=== PATIENT | female | born 1985 ===

== ENCOUNTER 2018-08-17 05:21 | Inpatient (IN) | payer OTHER ==
[2018-08-17 05:48] VITALS: BMI 28.0
[2018-08-17] MEDS ORDERED: Oxytocin 30 UNIT in NS 500 ml 30 UNITS/500 ML BAG IV ONE (05:48)
[2018-08-17] MEDS: Lactated Ringer's 1,000 ML IV ONE ×2 (06:00→07:00)
[2018-08-17] MEDS ORDERED: OXYTOCIN/0.9 % NS 20 UNIT/1,000 ML BAG IV SCH ×2 (06:00→14:30)
[2018-08-17 06:26] LABS: BASO % 0.5 % (0.0-2.0); EOS # 0.1 K/uL (0.0-0.7); EOS % 2.2 % (0.0-4.0); LYMPH # 1.6 K/uL (1.0-4.3); MEAN CELL VOLUME 81.1 fl (81.0-99.0); MEAN CORPUSCULAR HEMOGLOBIN 25.6 pg (27.0-31.0); MEAN CORPUSCULAR HGB CONC 31.5 g/dL (33.0-37.0); MEAN PLATELET VOLUME 9.2 fl (7.2-11.7); MONO # 0.4 K/uL (0.0-0.8); MONO % 5.3 % (0.0-10.0); NEUT # 4.4 K/uL (1.8-7.0); NRBC % 0.4 % (0.0-0.0); RBC 4.69 Mil/uL (3.80-5.20); RED CELL DISTRIBUTION WIDTH 35.9 % (11.5-14.5); WHITE BLOOD COUNT 6.6 K/uL (4.8-10.8)
[2018-08-17] MEDS ORDERED: ceFAZolin 2 GM in Sodium Chloride 0.9% 100 ML IVPB ONE (07:04)
--- NOTE | 2018-08-17 08:44 | OBADHP ---
Datetime: 08/17/2018 08:09 Admit Comment, IP Provider: 32 y/o , 39.3 weeks based on LMP with NARINDER 08/21/18 presents to L_D fo r scheduled repeat C - Section. Patient has H/O RAO in prior as well as current f or which she is receiving weekly IV iron infusions. Last infusion on 08/14/18. Reports Irregular CTx Q10-15 mins. Denies vaginal bleeding, LOF, Endorses good movements. Denies any other complains at this time. care: [facility], H/O RAO in prior and current pregnnacy receiving weekly IV Iron Infus ion. GBS+, Rubella Immune, HBsAg neg, HIV NR, RPR neg, Blood type O+ ab Neg. OBHx: G1: C section d/t dailed induction and decels, 39 weeks, RAO, received 3 PRBC S/P C section G2: Scheduled C section, RAO, receiving IV iron PMHx: RAO PSHx: C section 2011 Allergies: NKDA Meds: IV iron weekly, PNVs F/H: Grand parents: DM SocialHx: Denies smoking/drugs/alcohol PE Gen: NAD Chest: RRR, S1S2 present, No murmurs Lungs: CTAB, No rales, wheezing Abdomen: Gravid, NT, BS+ Ext: No pedal edema A/P: 32 y/o , 39.3 weeks based on LMP with NARINDER 08/21/18 presents to L_D for scheduled repeat C - Section. GBS+, Rubella Immune, HBsAg neg, HIV NR, RPR neg, Blood type O+ ab Neg. - admit for scheduled C section - LR 2L - CBC, T_S, HIV, RPR - Ancef 2 gm - Anesthesia consult - TOco and EFM monitoring Case discussed with Dr. Argelia Watt, PGY1 OB Hospitalist Addendum: Pt seen and examined by me. Agree w/ above. 32 yo at 39+3 wks w / h/o section for repeat section. Consents for procedure and possible transfusion obtained. (ES) Pelvic Type - PN: Not Done Extremities - PN: Normal Abdomen - PN: Normal Back - PN: Normal Breast - PN: Not Done Lungs - PN: Normal Heart - PN: Normal Thyroid - PN: Not Done Neurologic - PN: Normal HEENT - PN: Normal General - PN: Normal FHR - Baseline A Provider: 140-150s IP Hx Assessment: The History has been Reviewed and is Current Vital Signs Provider: Reviewed; Within Normal Limits IP Chief Complaint: Scheduled Section NICHD Variability Prov Fetus A: Moderate 6-25bpm NICHD Accel Fetus A IP Provider: [id number] FHR Category Provider Fetus A: Category I NICHD Decel Fetus A IP Provider: Variable Genitourinary Exam: Not Done DTRs - PN: Normal EGA AdmitDate IP: 39.3 IP Adm Impression: Term, intrauterine IP Admit Plan: Initiate Section protocol
[2018-08-17] MEDS ORDERED: Lactated Ringer's 1,000 ML IV SCH (09:00)
[2018-08-17] MEDS ORDERED: Morphine 5 mg/10 ml preservative-free Inj(Duramorph) ONE (09:18)
[2018-08-17] MEDS ORDERED: Oxycodone/Acetaminophen 5/325 mg Tab PO PRN (10:33)
[2018-08-17] MEDS ORDERED: DiphenhydrAMINE 50 mg/ml Inj IVP PRN (10:49)
--- NOTE | 2018-08-17 10:49 | OBDS ---
DELIVERY PERSONNEL Delivery Doctor: Juany Wu MD Sap Functional Analyst: Aishwarya Mcneill RN Anesthesiologist: Jeramy Adler MD Resident: Shukri MATERNAL INFORMATION Delivery Anesthesia: Spinal Provider Comments: Pre-op dx: 32 yo at 39+3 wks w/ h/o previous section for repeat section Post-op dx: same Procedure: Repeat low transverse section, scar excision Surgeon: Bryce Radio Message Router: Drs. Kaity Gorman, OB fellow and Cabrera Watt, PGY-1 Anesthesia: Spinal Anesthesiologist: Dr. Adler Findings: Viable female delivered in cephalic presentation through clear fluid at 0952. Ap gars 9 and 9. Wt 3420 gms, 7#9. Nl appearing uterus, tubes and ovaries. EBL: 800 mL Complications: None LABOR SUMMARY EDC: 08/21/2018 00:00 No. Babies in Womb: 1 Attempted: No Labor Anesthesia: None LABOR INFORMATION Reason for Induction: Not Applicable Oxytocin: N/A Group B Beta Strep: Positive Steroids Given: None Reason Steroids Not Administered: Not Applicable MEMBRANES Membranes Rupture Method: Artificial Rupture of Membranes: 08/17/2018 09:51 Length of Rupture (hrs): 0.02 Amniotic Fluid Color: Clear Amniotic Fluid Amount: Moderate Amniotic Fluid Odor: Normal STAGES OF LABOR Stage 3 hrs: 0 Stage 3 min: 1 CSECTION DELIVERY Primary Indication: Repeat Elective CSection Urgency: Elective CSection Incidence: Repeat Labor: No Labor Elective: Elective CSection Incision: Lower Uterine Transverse BABY A INFORMATION Delivery Date/Time: 08/17/2018 09:52 Method of Delivery: Born in Route : No : N/A Forceps: N/A Vacuum Extraction: N/A Shoulder Dystocia : No SHOULDER DYSTOCIA BABY A Infant Delivery Date/Time: 08/17/2018 09:52 PRESENTATION/POSITION BABY A Presentation: Cephalic Cephalic Presentation: Vertex Breech Presentation: N/A PLACENTA INFORMATION BABY A Placenta Delivery Time : 08/17/2018 09:53 Placenta Method of Delivery: Manual Removal Placenta Status: Delivered SCORES BABY A Heart Rate 1 min: >100 bpm Resp Effort 1 min: Good Cry Reflex Irritability 1 min: Cough or Sneeze or Pulls Away Muscle Tone 1 min: Active Motion Color 1 min: Body Kress, Extremities Blue Resuscitation Effort 1 min: N/A SCORE 1 MIN: 9 Heart Rate 5 min: >100 bpm Resp Effort 5 min: Good Cry Reflex Irritability 5 min: Cough or Sneeze or Pulls Away Muscle Tone 5 min: Active Motion Color 5 min: Body Kress, Extremities Blue Resuscitation Effort 5 min: N/A SCORE 5 MIN: 9 INFORMATION BABY A Gestational Age at Delivery: 39.3 Gestational Status: Term Outcome : Liveborn Infant Condition : Stable Infant Sex: Female IDENTIFICATION/MEDS BABY A ID Band Number: [id number] ID Band Location: Left Leg; Left Arm WEIGHT/LENGTH BABY A Infant Birthweight (gms): 3420 Weight (lb): 7 Weight (oz): 9 Infant Length Inches: 21.00 Length cms: 53.3 CORD INFORMATION BABY A No. Cord Vessels: 3 Nuchal Cord : N/A Cord Blood Taken: N/A Suction: Mouth; Nose
[2018-08-17] MEDS: Simethicone 80 mg Chewtab PO SCH ×2 (17:26→23:08)
[2018-08-17] MEDS: Lactated Ringer's 1,000 ML IV SCH (22:29)
--- NOTE | 2018-08-17 22:32 | OP ---
PROCEDURE DATE: 08/17/2018 PREOPERATIVE DIAGNOSIS: This is a 32-year-old G2, P1-0-0-1 at 39 weeks' and 3 days with a history of previous section for repeat section. POSTOPERATIVE DIAGNOSIS: This is a 32-year-old G2, P1-0-0-1 at 39 weeks' and 3 days with a history of previous section for repeat section. PROCEDURE: Repeat low transverse section and scar excision. SURGEON: Idalia Wu MD ASSISTANTS: Dr. Kaity Gorman, OB fellow and Dr. Cabrera Watt, PGY-1. ANESTHESIA: Spinal anesthesia. ANESTHESIOLOGIST: Dr. Adler. FINDINGS: Viable female delivered in cephalic presentation to clear fluid at 0952. Apgars 9 and 9 at 1 and 5 minutes respectively. The weight was 3420 g or 7 pounds and 9 ounces. Normal appearing uterus, tubes, and ovaries. ESTIMATED BLOOD LOSS: About 800 mL. COMPLICATIONS: None. DESCRIPTION OF PROCEDURE: The patient was taken to the operating room with IV running. Spinal was placed. She was then prepped and draped in the normal sterile fashion in the dorsal supine position with a leftward tilt. A Lo was then placed in the bladder. Time-out was done. The spinal was tested and found to be adequate. Initially the previous keloid scar was cut out with the scalpel. It was then held up with an Allis clamp, and Packer scissors were used to excise the scar tissue. The incision was then carried through to the underlying layer of fascia with the scalpel. The fascia was then incised in the midline. The incision was extended laterally with Packer scissors. The inferior aspect of the fascial incision was then grasped with David clamps, elevated and the underlying rectus muscles were dissected off bluntly. Attention was then turned to the superior aspect of this incision which in a similar fashion was grasped, tented up with David clamps, and rectus muscle was dissected off bluntly. The rectus muscles were then in the midline. The peritoneum was entered digitally. The peritoneal incision was then extended superiorly and inferiorly with good visualization of the bladder. The bladder blade was then inserted. The vesicouterine peritoneum was identified, grasped with the pickups and entered sharply with Metzenbaum scissors. The incision was then extended laterally and the bladder flap was created digitally. The bladder blade was then reinserted and the lower uterine segment was incised in a transverse fashion with the scalpel. The uterine incision was then extended digitally. Allis clamp was used to break the membranes. The bladder blade was removed and the infant's head delivered atraumatically. The cord was clamped and cut. There was initially some delayed cord clamping and then the cord was clamped and cut. The infant was handed off to the awaiting security operations center operator. Cord blood was then collected. The placenta was then delivered and the uterus was massaged. The uterus was then exteriorized and cleared of all clots and debris with a dry sponge curettage. Uterine incision was repaired with 0 Vicryl in a running locked fashion. [id number] was then placed in the middle of the incision for hemostasis and an interrupted suture was placed at the left hand side of the incision for hemostasis. The abdomen was then well irrigated. The uterus was returned to the abdomen. The incision was reexamined and a single interrupted stitch of 0 Vicryl was placed again at the left hand corner of the incision for hemostasis. The gutters were cleared of all clots. The peritoneum was then closed with 2-0 chromic. The muscle was then reapproximated with running stitch of 0 chromic. The fascia was reapproximated with 0 Vicryl in a running fashion. Bovie was applied to small bleeders and subcutaneous fat. About two interrupted stitches of 2-0 plain gut were used to close the space of the fat. The skin was then closed with 4-0 Monocryl in a subcuticular fashion. The patient tolerated the procedure well. Sponge, lap, and needle counts were correct. The patient received 2 g of Ancef prior to and at the very beginning of the procedure. The patient was taken to the recovery room in stable condition. Idalia Wu MD
[2018-08-18] MEDS: Simethicone 80 mg Chewtab PO SCH ×4 (04:44→21:43)
[2018-08-18] MEDS: Lactated Ringer's 1,000 ML IV SCH (06:03)
[2018-08-18 06:05] LABS: HEMOGLOBIN 9.3 g/dL (12.0-16.0); MEAN CORPUSCULAR HEMOGLOBIN 26.4 pg (27.0-31.0); RBC 3.53 Mil/uL (3.80-5.20); RED CELL DISTRIBUTION WIDTH 36.7 % (11.5-14.5); WHITE BLOOD COUNT 7.9 K/uL (4.8-10.8)
[2018-08-18] MEDS ORDERED: Multivitamin With Minerals Tab PO SCH (09:00)
--- NOTE | 2018-08-18 09:45 | OBPPN ---
Datetime: 08/18/2018 06:15 PP Pain Prov: Within normal limits PP Nausea Prov: Denies PP Flatus Prov: Yes PP BM Prov: No PP Breasts Prov: Not Done PP Heart Prov: Normal PP Lungs Prov: Normal PP Abdomen/Uterus Prov: Normal PP Lochia Prov: Normal PP Vulva/Perineum Prov: Not Done PP CVA Tenderness Prov: Not Done PP Extremities Prov: Normal PP C/S Incision Prov: Normal PP Progress Prov: Normal PP Impression Prov: Normal progression PP Plan Prov: Continue present management PP Progress Note Prov: S: 32 y/o female doing well on s/pod#1 of . Patient seen and e xamined at bedside. No complaints at this time. Denies n/v. Tolerating liquid diet. Lochia like-mense s. without difficulties. Passing gas, but no BM. O: Gen: lying in bed comfortably. Heart: S1/S2 present, RRR. Lung: normal breathing effort, clear to auscultation bilaterally. Abd: normal bowel sounds, soft, non-tender. Uterus firm at umbilicus. In cision c/d/i. Extremities: no swelling/erythema/tenderness A: 32 y/o female s/pod#1 on 08/17/2018 P: 1. Cont. postparum orders 2. Ibuprofen 600mg PO Q6H Prn and perocet 5/325 Q4H prn for pain 3. Encourage ambulation 4. advance diet as tolerated 5. Senekot 17.5mg PO QHS for constipation 6. encourage breast feeding. 7. Possible discharge: 08/20/2018 moe Grossman OB Hospitalist note. ON ronuds, I saw this patient. Agree with PGY1 note ROBBIN TIMMONS PP Procedures: None Vital Signs Provider PP: Reviewed; Within Normal Limits
[2018-08-18] MEDS: Oxycodone/Acetaminophen 5/325 mg Tab PO PRN ×2 (14:53→19:49)
[2018-08-18] MEDS ORDERED: Oxycodone/Acetaminophen 5/325 mg Tab PO PRN (20:14)
[2018-08-19] MEDS: Simethicone 80 mg Chewtab PO SCH ×5 (03:33→21:36)
[2018-08-19] MEDS: Multivitamin With Minerals Tab PO SCH (08:46)
[2018-08-19] MEDS: Oxycodone/Acetaminophen 5/325 mg Tab PO PRN ×2 (15:32→21:32)
[2018-08-20] MEDS: Simethicone 80 mg Chewtab PO SCH ×2 (04:38→09:11)
[2018-08-20] MEDS: Oxycodone/Acetaminophen 5/325 mg Tab PO PRN (09:09)
[2018-08-20] MEDS: Multivitamin With Minerals Tab PO SCH (09:10)
--- NOTE | 2018-08-20 12:53 | OBPPN ---
Datetime: 08/20/2018 06:00 PP Pain Prov: Within normal limits PP Nausea Prov: Denies PP Flatus Prov: Yes PP BM Prov: Yes PP Breasts Prov: Not Done PP Heart Prov: Normal PP Lungs Prov: Normal PP Abdomen/Uterus Prov: Normal PP Lochia Prov: Normal PP Vulva/Perineum Prov: Not Done PP CVA Tenderness Prov: Not Done PP Extremities Prov: Normal PP C/S Incision Prov: Normal PP Progress Prov: Normal PP Impression Prov: Normal progression PP Plan Prov: Continue present management; Discharge PP Progress Note Prov: S: 32 y/o female doing well on s/pod#3 of . Tolerating regular diet. Lochia like-menses. without difficulties. Passing gas and B M. O: Gen: lying in bed comfortably. Heart: S1/S2 present, RRR. Lung: normal breathing effort, clear to auscultation bilaterally. Abd: normal bowel sounds, soft, non-tender. Uterus firm at umbilicus. Incision c/d/i. Extremities: no swelling/erythema/tenderness Extremities: no swelling/erythema/tenderness A: 32 y/o female s/pod#3 on 08/17/2018 P: 1. Cont. postparum orders 2. Ibuprofen 600mg PO Q6H Prn and perocet 5/325 Q4H prn for pain 3. Encourage ambulation 4. Senekot 17.5mg PO QHS for constipation 6. encourage breast feeding. 7. discharge today Case discussed with attending moe Grossman Attending addendum: I saw and examined the patient at bedside myself this morning. I reviewed the resident note above and agree with findings and management. DC home today. preeclampsia, depression and infection precautions discussed. Patient to be seen by PMD within next 1-2 wks for wound check. Gloria Workman MD IP PP Procedures: None Vital Signs Provider PP: Reviewed; Within Normal Limits
--- NOTE | 2018-08-20 12:53 | OBDCSUM ---
Datetime: 08/20/2018 07:06 Discharged to, Provider: Home Follow up at, Provider: [facility] Disch Instr Activity: Normal activity Disch Instr Diet: Regular Discharge Instructions, Provider: Routine instructions given Discharge Diagnosis, Provider: Term Delivered Discharge Time: 08/20/2018 10:00 Follow up in weeks, Provider: 1 week Contraception discussed, Prov: Yes Discharge Comment, Provider: Discharge Summary DOA: 08/17/09 9:52 EGA: 39.3 Diagnosis: S/P on 08/17 Summary of : 32 y/o s/p . L_D summary: Pt is s/p . Pain was well controlled with pain meds. No nausea. Tolerated re gular diet well. Passing flatus, no BM. Voiding well w/o difficulties. without difficul ty. Lochia is similar to menses volume. DOL: 08/17/18 @ 9:53 NB: F : 12/14 Weight: 3420 Lochia less menses, mild pain, controlled with medications Blood type: O +, Antibody Neg aCBC:12.0/38.0 pCBC: 9.3/28.3 Discharge Date: 08/20/2018 Time 10:00 AM Discharge Instructions: -Encourage -Encourage ambulation -Ibuprofen mild to moderate pain -Continue vitamins at home -Start Continue ferrous sulfate - ED precautions: If excessive bleeding, pain that does not get relief, fever >100.4, palpitations , SOB, CP or other concerning symptom go to the ED. - PT was urged if feeling sad, mood swing, depression, neglect of baby, suicidal thoughts, homicid al thoughts go to ER or call 911 for help - Pt should go to her Primary care doctor if have difficulty with breast feeding - F/U w/ OB in 1 week for incision. And within 4-6 weeks for checkup. moe Grossman Attending addendum: I saw and examined the patient at bedside myself this morning. I reviewed the resident note above and agree with findings and management. DC home today. preeclampsia, depression and infection precautions discussed. Patient to be seen by PMD within next 1-2 wks for wound check. Gloria Workman MD Contraception after Delivery: Foam/Condoms
[2018-08-20 18:02] VITALS: BP 111/78; PULSE 67; RESP 20; TEMP 98.1; O2SAT 96
== END 2018-08-20 13:30 | disposition home or self-care (01) | DRG 371 ==
LOC: H.EROB2 05:21 → H.L&D 05:48 → H.OB/GYN 15:44
PROVIDERS: ADMIT Obstetrics & Gynecology; ATTEND Obstetrics & Gynecology
PROC: 10D00Z1 Extraction of Products of Conception, Low, Open Approach (ICD-10-PCS; principal; 2018-08-17)
PROC: 4A1HXCZ Monitoring of Products of Conception, Cardiac Rate, External Approach (ICD-10-PCS; 2018-08-17)
DX: O34.211 Maternal care for low transverse scar from previous cesarean delivery (principal); Z37.0 Single live birth; Z3A.39 39 weeks gestation of pregnancy; O99.824 Streptococcus B carrier state complicating childbirth; K59.00 Constipation, unspecified